=== PATIENT | male | born 1960 | race Caucasian/White ===

== ENCOUNTER → 2018-04-14 11:07 | Outpatient (CLI) | payer OTHER, SELFPAY ==
--- NOTE | 2018-04-14 11:08 | ECHOD_ITS ---
Version 2 Reason For Study: dyspnea/SOB Procedure This was a 2D Doppler, Color Flow transthoracic echocardiogram. The study was technically difficult. Contrast injection was performed. Exam performed in department. Left Ventricle Severely dilated left ventricle. The estimated ejection fraction is 15 %. Severe global left ventricular systolic dysfunction. Transmitral diastolic flow velocities suggest severe (stage 3) diastolic dysfunction. There is severe global hypokinesis of the left ventricle. Right Ventricle Normal RV size. Normal systolic function. Atria Normal left atrium. Normal right atrium. Mitral Valve Normal mitral valve. Mild (1+) eccentric mitral valve insufficiency. Tricuspid Valve Normal tricuspid valve. Unable to estimate RV systolic pressure due to inadequate jet, pulmonary artery pressure probably normal. Aortic Valve Normal aortic valve. Trisinus/trileaflet aortic valve. Pulmonic Valve Normal pulmonic valve. Great Vessels Normal aortic root. The pulmonary artery is normal size. Normal inferior vena cava. Pericardium/Pleural No pericardial effusion. Medication 22 gauge I.V. with prn adaptor inserted into right arm. Diluted definity 3.0ml given slow IV push to enhance endocardial definition. MMode/2D Measurements & Calculations LVIDd: 7.2 cm IVSd: 1.1 cm Ao root diam: 3.2 cm LVIDs: 6.6 cm LVPWd: 1.3 cm LA dimension: 3.0 cm RVDd: 3.1 cm FS: 7.5 % LAV(MOD-bp): 59.0 ml LAV(MOD-bp) Indexed: 30.9 ml/m2 LA A4 area: 15.0 cm2 RA A4 area: 12.1 cm2 LAV(MOD-sp2): 58.9 ml LAV(MOD-sp4): 45.0 ml Doppler Measurements & Calculations MV E max thiago: 127.6 cm/sec Lat Peak E' Thiago: 8.1 cm/sec Med Peak E' Thiago: 11.9 cm/sec MV A max thiago: 44.3 cm/sec E/E' lat: 15.7 E/E' med: 10.7 MV E/A: 2.9 Ao V2 max: 132.5 cm/sec LV V1 max: 68.1 cm/sec Ao max P.1 mmHg LV V1 max P.9 mmHg Interpretation Summary Severely dilated left ventricle. The estimated ejection fraction is 15 %. Severe global left ventricular systolic dysfunction. Structurally normal valves. Contrast injection was performed. Compared to prior study, there is no significant change. Ordering Physician: Jean Carlos Cordero Referring Physician: William Quintana Performed By: Guerline Osuna, JALEN, RVT
== END ==
PROVIDERS: Family Provider Family Medicine; PCP Family Medicine; Visit Provider Internal Medicine Cardiovascular Disease
DX: I50.22 Chronic systolic (congestive) heart failure (principal)
CPT/HCPCS: 93306; Q9957; A4216; C8929